=== PATIENT | female | born 1940 | race Caucasian/White ===

== ENCOUNTER 2020-06-09 10:29 | Outpatient (CLI) | payer MEDICARE, SELFPAY ==
--- NOTE | ~2020-06-09 | XR_ITS ---
EXAMINATION: XR chest 2V 06/09/2020 10:46 INDICATION: Persistent cough PROCEDURE: 2 view chest COMPARISON: 11/28/2014 FINDINGS: The lungs are clear. The lungs are hyperinflated which is consistent with, but not diagnost ic of chronic obstructive pulmonary disease. The cardiomediastinal silhouette is within normal limits . There are no pleural effusions. There is no pneumothorax suspected. IMPRESSION: 1: NO ACUTE CARDIOPULMONARY DISEASE. Reviewed, dictated and finalized at location A.
== END 2020-06-09 10:30 | disposition home or self-care (01) ==
PROVIDERS: PCP Family Medicine; Visit Provider Physician Assistant Medical
DX: R05 Cough (principal)
CPT/HCPCS: 71046

== ENCOUNTER 2020-07-16 08:52 | Outpatient (CLI) | payer MEDICARE, SELFPAY ==
--- NOTE | ~2020-07-16 | DEXA_ITS ---
Bone Density Report Name: Fide Adame Age: 80 Sex: Female Ethnicity: White Date of : 1940 Indication: postmenopausal; height loss; hysterectomy; Referring Provider: Liana Tracy Study: Bone densitometry was performed. Exam Date: July 16, 2020 Accession number: [id number] Bone Density: Region BMD T-score Z-score Classification AP Spine (L1, L2) 1.120 1.3 3.7 Normal Femoral Neck (Left) 0.656 -1.7 0.5 Osteopenia Total Hip (Left) 0.861 -0.7 1.3 Normal Total Hip Bilateral Avg 0.842 -0.8 1.2 Normal Femoral Neck (Right) 0.629 -2.0 0.2 Osteopenia Total Hip (Right) 0.822 -1.0 1.0 Normal World Health Organization criteria for BMD impression classify patients as: Normal (T-score at or above -1.0), Osteopenia (T-score between -1.0 and -2.5), or Osteoporosis (T-score at or below -2.5). 10-year Fracture Risk(1): Major Osteoporotic Fracture 14% Hip Fracture 4.0% Reported Risk Factors: [place] (), Neck BMD=0.629, BMI=24.1 (1) FRAX(R) Version 3.08. Fracture probability calculated for an untreated patient. Fracture probability may be lower if the patient has received treatment. Previous Exams: Region Exam Age BMD T-score BMD Change BMD Change Date g/cm2 vs Baseline vs Previous AP Spine(L1, L2) 07/16/2020 80 1.120 1.3 0.162(16.9%)* 0.162(16.9%)* 09/17/2014 74 0.958 -0.2 Total Hip(Left) 07/16/2020 80 0.861 -0.7 -0.022(-2.5%) -0.022(-2.5%) 09/17/2014 74 0.883 -0.5 Total Hip(Right) 07/16/2020 80 0.822 -1.0 -0.003(-0.4%) -0.003(-0.4%) 09/17/2014 74 0.825 -1.0 *Denotes significance at 95% confidence level, LSC for AP Spine = 0.022 g/cm2, LSC for Total Hip = 0.027 g/cm2 Clinical Information Provided by Patient: Has used the following medications: HRT (i.e. estrogen/hormone therapy), Vitamin D Has the following medical conditions: Hysterectomy, COPD Patient maximum height was 66 Menopause Age: 53 No regular weight bearing exercise Does not regularly consume dairy products Drinks caffeinated beverages Onset of menses at age 15 Number of children 1 Impression: The patient has low bone mass, based on the Right Femoral Neck T-score. The patient has an estimated ten-year risk of hip fracture of 4% and an estimated ten-year risk of major fracture of 14%, based on the WHO FRAX algorithm. No significant bone loss was observed. Discussion: BONE DENSITY IS LOW AT ONE OR MORE SKELETAL SITES. THE PATIENT'S BMD
== END 2020-07-16 08:53 | disposition home or self-care (01) ==
PROVIDERS: PCP Family Medicine; Visit Provider Physician Assistant Medical
DX: Z78.0 Asymptomatic menopausal state (principal)
CPT/HCPCS: 77080

== ENCOUNTER 2020-09-07 02:05 | Outpatient (CLI) | payer MEDICARE, SELFPAY ==
[2020-09-07 18:52] LABS: SARS-CoV-2 RNA PCR Negative
== END 2020-09-07 02:06 | disposition home or self-care (01) ==
LOC: ANHCOVIDDT 02:07
PROVIDERS: PCP Family Medicine; Visit Provider Internal Medicine Critical Care Medicine
DX: Z01.818 Encounter for other preprocedural examination (principal); Z20.828 Contact with and (suspected) exposure to other viral communicable diseases
CPT/HCPCS: 87635; C9803; U0003

== ENCOUNTER 2020-09-09 08:32 | Outpatient (CLI) | payer MEDICARE, SELFPAY ==
--- NOTE | 2020-10-23 14:06 | WPDSLEEPSTUD ---
Sleep Study Date of Study: 09/09/20 Ordering Provider: Kaylah Walker MD Interpreting Physician: Ana Hall MD Sleep Study Type: Polysomnogram Height: 1.65 m Weight: 65.771 kg Body Mass Index: 24.1 Neck Circumference: 30.48 cm [place]: 2 Reason for Sleep Study difficulty staying asleep Sleep History Fide Adame is a 81 year old female with difficulty staying asleep. She usually does not have problems falling asleep. She wakes up several times during the night, initially after the first 2 to 4 hours of sleep. She wakes up and feels that it is time for her to get up. She may stay in bed, watch TV and then usually she falls back to sleep. After another 1 or 2 hours she wakes again. She sleeps in blocks of 10-4 hours. She does not know how long this has been going on in total, but she knows that it has been longer than 2 years. she does not know if she snores or not. Nobody has complained about it. She does not awaken at night with heartburn, belching or coughing. She does not awaken from sleep feeling short of breath. She does not have trouble sleep with a cold and does not gasp for breath at night. She does not have breathing problems at night observed by others. She rarely sweats excessively at night. She does not notice her heart pounding or beating irregularly at night. She rarely falls asleep during the day, never involuntarily and never while driving. She does not fall asleep while exerting physical effort. She does not have loss of muscle tone with strong emotion. She does not have daytime difficulties due to excessive sleepiness, she is retired. she does not feel paralyzed on waking or falling asleep. She does not have vivid dreamlike scenes upon awakening or falling asleep. She is never a freight to go to sleep. She denies having nightmares. She rarely remembers her dreams. She frequently has racing thoughts. She does not have feelings of sadness or depression. She occasionally has anxiety. She occasionally has muscular tension. She does not notice parts of her body jerking. She does not kick at night. She does not have crawling and aching feelings in her legs and does not have any leg pain during the night. She does not wake up with morning jaw pain. She does not grind her teeth during sleep. She rarely is bothered by pain during the day. She never is awakened by pain at night. She occasionally wakes up feeling stiff in the morning with sore achy muscles. She rarely wakes up with pain in the neck and spine. She has memory problems. She has been prescribed Trazodone for sleep however this does not help her sleep through the night. Her normal bedtime is 11:00 p.m. falling asleep within a 1/2 hour, waking up 1 or 2 times throughout the night. While awake, she will watch television, use the bathroom and try to return to sleep. She may stay awake for 1-2 hours. She wakes in the morning at 7:30 a.m. She stays in the bed 2 hours after waking. She does not usually take a nap. Habits: Smoked 16 years ago. Caffeine 2 cups of coffee in the morning. Alcohol 1 or 2, not daily. [facility], [facility] Past Medical History Medical History (Updated 10/23/20 @ 19:36 by Ana Hall MD) COPD (chronic obstructive pulmonary disease) Essential (primary) hypertension Graves disease History of tobacco abuse Hyperlipidemia, unspecified Other iron deficiency anemias Thyroid disease Tinnitus Surgical History Surgical History (Updated 10/23/20 @ 18:57 by Ana Hall MD) H/O eye surgery H/O foot surgery History of cholecystectomy History of hysterectomy Family History Family History Sibling Family history of premature coronary heart disease Mother Hypertension Family history of congestive heart failure Father Family history of dementia Family history of Alzheimer's disease Other Cerebrovascular accident Family history of cardiovascular disease Family
[2020-10-23 18:48] VITALS: BMI 24.1
== END 2020-09-09 08:33 | disposition home or self-care (01) ==
LOC: ANHCSM 08:33
PROVIDERS: PCP Family Medicine; Visit Provider Internal Medicine Critical Care Medicine
DX: Z72.820 Sleep deprivation (principal); I45.10 Unspecified right bundle-branch block
CPT/HCPCS: 95810

== ENCOUNTER 2020-09-16 09:13 | Outpatient (CLI) | payer MEDICARE, SELFPAY ==
--- NOTE | 2020-10-28 14:18 | P.PCNPFT_ITS ---
PFT Interpretation PFT Interpretation: DOS: 09/16/2020 REQUESTING: Kaylah Walker MD REASON FOR TESTING: hyperinflation of the lungs PULMONARY FUNCTION TESTS Results are reliable. Spirometry: FEV1 is 111%, 2.11 L. This is normal. FVC 98%, also normal. FEV1/FVC is 78%, normal. There is no significant change after bronchodilator administration. Lung volumes: Total lung capacity is 97% normal. Residual volume 99%. RV/TLC 43%, mildly above predicted consistent with mild air trapping. Airway resistance 68%, not elevated. Diffusion: DLCO 72%. Flow volume loop: The inspiratory is not reproducible. The expiratory limb is normal. IMPRESSION: Normal spirometry, mild air trapping, and mild diffusion impai rment. The mild air trapping suggests an obstructive process. There is no change with bronchodilator administration. Clinical correlation is recommended. Ana Hall MD
== END 2020-09-16 09:14 | disposition home or self-care (01) ==
PROVIDERS: PCP Family Medicine; Visit Provider Internal Medicine Critical Care Medicine
DX: R09.89 Other specified symptoms and signs involving the circulatory and respiratory systems (principal)
CPT/HCPCS: 94060; 94726; 94729

== ENCOUNTER 2023-05-09 10:39 | Outpatient (CLI) | payer MEDICARE, SELFPAY ==
--- NOTE | ~2023-05-09 | XR_ITS ---
AP and lateral views of the left hip Clinical history: Pain Findings: No acute fracture or dislocation is seen. Osseous alignment is anatomic. Left hip joint and left SI joint are preserved. Soft tissues are unremarkable. Impression: No significant abnormality is seen. Reviewed, dictated and finalized at [facility]. Impression: No significant abnormality is seen.
== END 2023-05-09 10:40 | disposition home or self-care (01) ==
PROVIDERS: PCP Family Medicine; Visit Provider Family Medicine
DX: M70.62 Trochanteric bursitis, left hip (principal)
CPT/HCPCS: 73502

== ENCOUNTER 2023-05-30 11:06 | Outpatient (CLI) | payer MEDICARE, SELFPAY ==
--- NOTE | ~2023-05-30 | XR_ITS ---
XR lumbar spine 6V w bending DATE: 05/30/2023 11:46 INDICATION: Low back pain TECHNIQUE: AP, lateral, bilateral oblique, coned lateral lumbosacral views. Weightbearing flexion and extension lateral views COMPARISON: None FINDINGS: There is osteopenia. There is mild lumbar dextroscoliosis. There is 4 mm anterolisthesis and L3-4, 7 mm anterolisthesis at L4-5 and 3.5 mm retrolisthesis at L5- S1 in flexion. The anterolisthesis is 2.5 mm at L3-4 and 5.5 mm at L4-5 in extension. The mild retrolisthesis at L5- S1 is stable in flexion and extension. There is moderately prominent degenerative disc disease at L1-2 and L3-4. There is mild degenerative disc disease at L2-3. There is severe degenerative disc disease at L4-5 and L5-S1. No fracture or bone destruction is detected. No spondylolysis. The sacroiliac joints are intact. Status post cholecystectomy. IMPRESSION: Lumbar spondylosis Reviewed, dictated and finalized at location L. IMPRESSION: Lumbar spondylosis
== END 2023-05-30 11:07 | disposition home or self-care (01) ==
LOC: ANHIMG 11:16
PROVIDERS: PCP Family Medicine; Visit Provider Family Medicine
DX: M47.816 Spondylosis without myelopathy or radiculopathy, lumbar region (principal)
CPT/HCPCS: 72114

== ENCOUNTER 2023-07-13 14:45 | Outpatient (RCR) | payer MEDICARE, SELFPAY ==
--- NOTE | 2023-06-23 13:35 | OPREHPOC ---
Outpatient Therapy Plan of Care This is a Multidisciplinary Plan of Care that may contain components documented by all disciplines (PT, OT, and ST.) PT Problem 1 PT Problem #1 Knowledge Deficit PT Goal 1 Goal 1* indep with HEP 2* demonstrate good back position with exercises and activities PT Problem 2 PT Problem #2 Pain PT Goal 1 Goal 1* pt report pain at worst rating of 4/10 2* self assessment Oswestry rating of 10% limitation PT Problem 3 PT Problem #3 Impaired Strength PT Goal 1 Goal 1* pt perform 20 reps of mat and standing exercises with good stability of trunk and hips 2* single leg standing R 20 seconds 3* single leg standing L 20 seconds PT Problem 4 PT Problem #4 Impaired Functional Mobil PT Goal 1 Goal 1* pt demonstrate correct lifting with both hands floor/waist height bilateral UE 20# box
--- NOTE | 2023-06-23 13:36 | PTOPEVAL1 ---
Assessment and note entered by Rupa Shay, PT Evaluation Information Assessment Status Evaluation Diagnosis back pain, R and L leg pain Onset about 1 year ago Subjective Information about 1 year ago pain started, got worse over past winter; started doing more exercise at [facility]--chair exercises, chair yoga, line dancing- -not done since January due to pain; had steroid injection L hip--helped some; Oswestry self assessment rating of 14% limitation; indep with all home and self care tasks, does yard work, pull weeds--did 7 hours of yard work yesterday Activity: not doing fitness exercises; not walking as much; xray report: lumbar: anterolisthesis L 3-4 and L 4-5; moderate DDD L 1-2, L 2-3, L3-4; severe DDD L 4-5 and L5- S1; Reported Pain Level Pain Score Self Report Additional Pain Score Comments pain range in the past 0-8/10; bilateral low back, into L hip and lateral thigh; feels like L hip is gong to pop out the side of my leg; increase pain: initial standing up and walking, after sitting takes 5-6 steps to ease pain; lie on L side decrease pain: change position, take tylenol PRN not using heat/ice- instruct on PRN use; with sleeping, wake up when changing positions- not consistent, sometimes have pain with waking up in AM; generally sleep on her sides R/L; is generally not a good sleeper; also have cervical and thoracic pain--sometimes sleeps in cervical collar to help neck pain Assessment PT Clinical Summary Fide has the diagnosis of back pain, R and L leg pain. Her history includes back pain and L hip bursitis. She is active and does fitness exercises at the [employer]. Xray report states bony changes, moderate to severe lumbar DDD and anterolisthesis. She is indep with all home and self care tasks. Self assessment Oswestry score of 14% limitation. Due to pain she has decreased sleeping and activity tolerance. With the evaluation, she has good flexibility of trunk and hips, with decreased strength of trunk and L hip. With palpation
--- NOTE | 2023-07-13 15:18 | PTOPDC ---
Assessment and note entered by Rupa Shay, PT Evaluation Information Assessment Status Discharge Diagnosis back pain, R and L leg pain Onset about 1 year ago Subjective Information back is better, know how to help the pain be less; has still been doing all her yard work, house work, returned to chair yoga class now; Reported Pain Level Pain Score Self Report Additional Pain Score Comments pain range in the past week of 0-5/10; R > L lower lumbar-sacral; decrease pain with heat and stretching from HEP and chair yoga; tylenol PRN for pain; increase pain: walking, more activity, end of day; more aware and try not to sit over 1 hour; Assessment PT Clinical Summary Fide has received 6 PT sessions. Compared to the initial evaluation: pain rating same at low of 0/10 and worst from 8 to 5/10; self assessment Oswestry score same at 14% limitation in activity level; increase hip and trunk strength, with single leg standing tolerance of 30+ seconds; correct body mechanics with lifting a 20# box from floor/waist height; education completed for home exercises and pain management techniques. The goals were achieved. Discharge PT Services. She is to continue with HEP and balance of activity/rest/position change. Plan of Care PT Services Indicated No
== END 2023-07-13 16:07 | disposition home or self-care (01) ==
LOC: ANHPT 14:45
PROVIDERS: PCP Family Medicine; Visit Provider Family Medicine
DX: M54.50 Low back pain, unspecified (principal); M79.604 Pain in right leg; M79.605 Pain in left leg
CPT/HCPCS: 97014; 97110; 97140; 97161; 97530; G0283

== ENCOUNTER 2024-01-11 10:41 | Outpatient (CLI) | payer MEDICARE, SELFPAY ==
--- NOTE | ~2024-01-11 | MM_ITS ---
EXAMINATION: MM screening tristan BI w yessenia HISTORY: Screening mammogram TECHNIQUE: Craniocaudal and mediolateral oblique 3-D tomosynthesis images were obtained and synthetic 2-D images were generated. CAD analysis was submitted and interpreted. COMPARISON: No prior mammogram is available for comparison at this institution. BREAST PARENCHYMAL COMPOSITION: The breasts are heterogeneously dense, which may obscure small masses . FINDINGS: Biopsy marker on the right; history of prior benign right breast biopsies. There are microcalcifications bilaterally. Magnification views are recommended for more definitive ev aluation. No suspicious mass or architectural distortion, skin thickening or retraction is evident. IMPRESSION: 1. Bilateral microcalcifications 2. Diagnostic bilateral mammogram with magnification views is recommended. Comparison with any prior available mammogram would be helpful. BI-RADS Category 0: Incomplete: Needs additional imaging evaluation. Reviewed, dictated and finalized at location A. IMPRESSION: 1. Bilateral microcalcifications 2. Diagnostic bilateral mammogram with magnification views is recommended. Comp arison with any prior available mammogram would be helpful. BI-RADS Category 0: Incomplete: Needs additional imaging evaluation.
== END 2024-01-11 10:42 ==
LOC: MICIMG 10:43
PROVIDERS: PCP Family Medicine; Visit Provider Family Medicine
DX: Z12.31 Encounter for screening mammogram for malignant neoplasm of breast (principal); R92.8 Other abnormal and inconclusive findings on diagnostic imaging of breast
CPT/HCPCS: 77063; 77067

== ENCOUNTER 2024-02-09 12:34 | Outpatient (CLI) | payer MEDICARE, SELFPAY ==
--- NOTE | ~2024-02-09 | XR_ITS ---
AP and lateral views of the left hip Clinical history: Pain comment bursitis Findings: No acute fracture or dislocation is seen. Osseous alignment is anatomic. Bilateral hip and SI joint spaces are preserved. Soft tissues are unremarkable. Impression: No significant abnormality is seen. Reviewed, dictated and finalized at [facility]. Impression: No significant abnormality is seen.
== END 2024-02-09 12:35 ==
PROVIDERS: PCP Physician Assistant; Visit Provider Physician Assistant
DX: M70.72 Other bursitis of hip, left hip (principal)
CPT/HCPCS: 73502

== ENCOUNTER 2024-04-09 09:03 | Day surgery (SDC) | payer MEDICARE, SELFPAY ==
[2024-02-01 13:41] VITALS: BMI 24.9
[2024-03-25 11:45] VITALS: BMI 23.5
--- NOTE | 2024-03-27 12:17 | PC.NURSE ---
Spoke with pt regarding anticoagulation clearance for colonoscopy scheduled 04/09/2024. Informed pt branch officer OK'd pt to hold Eliquis 2 days prior to colonoscopy, last dose 04/06/2024, and Dr Conley will inform pt when it can be restarted post procedure. Pt verbalized understanding.
[2024-04-09 10:40] VITALS: BP 111/78; PULSE 86; RESP 20; TEMP 36.3; O2SAT 100; BMI 22.4
[2024-04-09] MEDS: LACTATED RINGERS 1,000 ML 150 ML IV CONT (10:54)
--- NOTE | 2024-04-09 10:56 | WPDANESEPPF ---
Anes - Initial Pre Proc Eval Procedure: Operation Date: 04/09/24 11:30 Proposed Procedures p Screening Colonoscopy - Peter Conley MD Date/Time: 04/09/24 10:56 Surgeon: Peetr Conley MD Pre Op Diagnosis: Neoplasm Screening Patient Data Age: 84 Gender: F Height: 1.68 m Weight: 62.9 kg Last Vital Signs Temp 36.3 C L 04/09/24 10:40 Pulse 86 04/09/24 10:40 Resp 20 04/09/24 10:40 BP 111/78 04/09/24 10:40 Pulse Ox 100 04/09/24 10:40 O2 Del Method Room Air 04/09/24 10:40 Allergies Allergy/AdvReac Type Severity Reaction Status Date / Time No Known Allergies Allergy Mild Verified 04/09/24 10:33 Home Medications Medication Instructions Recorded Confirmed Type propranolol 80 mg capsule,24 80 mg PO DAILY 10/03/23 04/09/24 History hr,extended release apixaban 2.5 mg tablet (Eliquis) 2.5 mg PO BID 01/30/24 04/09/24 History levothyroxine 88 mcg tablet 88 mcg PO DAILY #90 tabs 03/20/24 04/09/24 Rx amlodipine 2.5 mg tablet 2.5 mg PO DAILY 03/25/24 04/09/24 History cholecalciferol (vitamin D3) 25 25 mcg PO DAILY 03/25/24 04/09/24 History mcg (1,000 unit) tablet (Vitamin D3) cholestyramine (with sugar) 4 gram 4 ea PO HS PRN other 03/25/24 04/09/24 History powder for susp in a packet estradiol 0.5 mg tablet 0.5 mg PO DAILY 03/25/24 04/09/24 History magnesium 500 mg tablet 500 mg PO DAILY 03/25/24 04/09/24 History turmeric 400 mg capsule 400 mg PO DAILY 03/25/24 03/25/24 History valacyclovir 500 mg tablet 500 mg PO DAILY PRN other 03/25/24 04/09/24 History vitamin B complex 1 tablet PO DAILY 03/25/24 04/09/24 History Patient hx anesthesia problems: none Family hx anesthesia problems: none Results Review: All pre-operative results and documents have been reviewed as part of the pre-operative evaluation. PMFSH Past Medical History Medical History Agnosia for taste Basal cell carcinoma (BCC) BMI 25.0-25.9,adult BMI 26.0-26.9,adult Breast tenderness in female Cervical radicular pain COPD (chronic obstructive pulmonary disease) Essential (primary) hypertension Exocrine pancreatic insufficiency Graves disease Head pain Hip bursitis, left History of tobacco abuse Hyperinflation of lungs Hyperlipidemia, unspecified Hypersomnia Left hip pain Left knee pain Leg pain, bilateral Low back pain Macrocytosis without anemia Other iron deficiency anemias Poor sleep Poor sleep hygiene Post-menopause on HRT (hormone replacement therapy) Right bundle branch block (~09/2020) Sciatica associated with disorder of lumbar spine Sensation of feeling cold Skin texture changes Snoring Suspected sleep apnea SVT (supraventricular tachycardia) Thyroid disease Tinnitus Urinary incontinence Surgical History Surgical History H/O eye surgery H/O foot surgery History of cholecystectomy History of hysterectomy S/P Mohs surgery for basal cell carcinoma eyebrow Family History Family History Sibling Family history of premature coronary heart disease Mother Hypertension Family history of congestive heart failure Rheumatoid arthritis Father Family history of dementia Family history of Alzheimer's disease Sibling Heart disease Sibling Acute myocardial infarction Other Cerebrovascular accident Family history of cardiovascular disease Family history of coronary artery disease Family history of malignant neoplasm Family history of rheumatoid arthritis Social History Social History Social History: Retired, lives alone, quit smoking 2001 Smoking packs per day: 1 Smoking cigarettes per day: 20.0 Years smoked: 44 Smoking pack-years: 44.00 Smoking status: Former smoker Tobacco type: cigarettes Second [place]
--- NOTE | 2024-04-09 11:02 | PM.HPGS ---
History of Present Illness History of Present Illness Consent: Risks, benefits, and alternatives have been discussed and questions answered. Patient agrees to proceed with procedure. Chief complaint: Neoplasm Screening Narrative: Fide Adame is a 84 year old female referred for colon cancer screening. Review of Systems Review of Systems: All systems reviewed & are unremarkable except as noted in HPI and below PMFSH Past Medical History Medical History Agnosia for taste Basal cell carcinoma (BCC) BMI 25.0-25.9,adult BMI 26.0-26.9,adult Breast tenderness in female Cervical radicular pain COPD (chronic obstructive pulmonary disease) Essential (primary) hypertension Exocrine pancreatic insufficiency Graves disease Head pain Hip bursitis, left History of tobacco abuse Hyperinflation of lungs Hyperlipidemia, unspecified Hypersomnia Left hip pain Left knee pain Leg pain, bilateral Low back pain Macrocytosis without anemia Other iron deficiency anemias Poor sleep Poor sleep hygiene Post-menopause on HRT (hormone replacement therapy) Right bundle branch block (~09/2020) Sciatica associated with disorder of lumbar spine Sensation of feeling cold Skin texture changes Snoring Suspected sleep apnea SVT (supraventricular tachycardia) Thyroid disease Tinnitus Urinary incontinence Surgical History Surgical History H/O eye surgery H/O foot surgery History of cholecystectomy History of hysterectomy S/P Mohs surgery for basal cell carcinoma eyebrow Family History Family History Sibling Family history of premature coronary heart disease Mother Hypertension Family history of congestive heart failure Rheumatoid arthritis Father Family history of dementia Family history of Alzheimer's disease Sibling Heart disease Sibling Acute myocardial infarction Other Cerebrovascular accident Family history of cardiovascular disease Family history of coronary artery disease Family history of malignant neoplasm Family history of rheumatoid arthritis Social History Social History Social History: Retired, lives alone, quit smoking 2001 Smoking packs per day: 1 Smoking cigarettes per day: 20.0 Years smoked: 44 Smoking pack-years: 44.00 Smoking status: Former smoker Tobacco type: cigarettes Second hand tobacco smoke exposure: No Alcohol intake: current Alcohol use details: occasional Substance use: never Substance use type: does not use Do You Feel Safe in your Home?: Yes Lack of Transportation: No Lack of Food: Never True Current Housing: I Have Housing Concerned About Future Housing: No Difficulty Paying Gas/Electric Bills: No Difficulty Paying for Meds: No Currently Unemployed: No Education: High School Diploma/GED Difficulty w/ Childcare or Family Care: No Living arrangements: alone Occupation/Education: retired Additional occupation/education comments: [employer] Gender identity (if verbalized by the patient): Female Spiritual care concerns: No Meds Home Medications and Allergies Home Medications Medication Instructions Recorded Confirmed Type propranolol 80 mg capsule,24 80 mg PO DAILY 10/03/23 04/09/24 History hr,extended release apixaban 2.5 mg tablet (Eliquis) 2.5 mg PO BID 01/30/24 04/09/24 History levothyroxine 88 mcg tablet 88 mcg PO DAILY #90 tabs 03/20/24 04/09/24 Rx amlodipine 2.5 mg tablet 2.5 mg PO DAILY 03/25/24 04/09/24 History cholecalciferol (vitamin D3) 25 25 mcg PO DAILY 03/25/24 04/09/24 History mcg (1,000 unit) tablet (Vitamin D3) cholestyramine (with sugar) 4 gram 4 ea PO HS PRN other 03/25/24 04/09/24 History powder for susp in a packet
[2024-04-09 11:42] VITALS: BP 113/69; PULSE 72; RESP 14; O2SAT 100
[2024-04-09 11:52] VITALS: BP 119/91; PULSE 79; RESP 20; O2SAT 100
[2024-04-09 12:02] VITALS: BP 115/62; PULSE 72; RESP 20; O2SAT 100
--- NOTE | 2024-04-09 12:15 | WPDANESPN ---
Anes - Prog Note Post-Op Date/Time: 04/09/24 12:15 Cardiovascular status: normal Respiratory status: normal Airway patency: baseline Mental status: baseline Vital Signs: Last Vital Signs Temp 36.3 C L 04/09/24 10:40 Pulse 72 04/09/24 12:02 Resp 20 04/09/24 12:02 BP 115/62 04/09/24 12:02 Pulse Ox 100 04/09/24 12:02 O2 Del Method Room Air 04/09/24 12:02 Pain Score (VAS): 0/10 I/O: Intake & Output 04/08/24 04/09/24 04/09/24 23:59 07:59 15:59 Intake Total 200 Balance 200 Patient Feedback: Patient satisfied with anesthetic care.
== END 2024-04-09 12:09 | disposition home or self-care (01) ==
PROVIDERS: PCP Family Medicine; Visit Provider Internal Medicine Gastroenterology
PROC: 0DJD8ZZ Inspection of Lower Intestinal Tract, Via Natural or Artificial Opening Endoscopic (ICD-10-PCS; CPT 45378; principal; 2024-04-09 11:30)
DX: Z12.11 Encounter for screening for malignant neoplasm of colon (principal); K57.30 Diverticulosis of large intestine without perforation or abscess without bleeding
CPT/HCPCS: G0121

== ENCOUNTER 2025-03-13 14:53 | Outpatient (CLI) | payer MEDICARE, SELFPAY ==
--- NOTE | ~2025-03-13 | MM_ITS ---
EXAMINATION: MM screening tristan BI w yessenia HISTORY: Screening TECHNIQUE: Craniocaudal and mediolateral oblique 3-D tomosynthesis images were obtained and synthetic 2-D images were generated. CAD analysis was submitted and interpreted. COMPARISON: Comparison to multiple prior studies sequentially, with oldest reviewed study dated 05/03. BREAST PARENCHYMAL COMPOSITION: Dense: The breasts are heterogeneously dense, which may obscure small masses FINDINGS: There are scattered punctate monomorphic breast calcifications which are not significantly changed. There is no evidence of suspicious mass, calcification, or architectural distortion to sugge st malignancy in either breast. There has been no suspicious interval change. IMPRESSION: 1. No mammographic evidence of malignancy. 2. Recommend routine screening mammography in one year. BI-RADS Category 2: Benign finding(s). Reviewed, dictated and finalized at location B.
== END 2025-03-13 14:54 | disposition home or self-care (01) ==
LOC: MICIMG 14:54
PROVIDERS: PCP Nurse Practitioner Family; Visit Provider Nurse Practitioner Family
DX: Z12.31 Encounter for screening mammogram for malignant neoplasm of breast (principal)
CPT/HCPCS: 77063; 77067

== ENCOUNTER 2025-07-05 09:52 | Outpatient (CLI) | payer MEDICARE, SELFPAY ==
--- NOTE | ~2025-07-05 | XR_ITS ---
EXAMINATION: XR hip BI 2V w AP pelvis, 07/05/2025 10:00 CDT HISTORY: M70.62 - Trochanteric bursitis, left hip, PAIN X 2YRS COMPARISON: No comparisons available. Findings: No acute fracture or malalignment. Moderate degenerative changes Soft tissues unremarkable. Impression: No acute fracture or malalignment. Reviewed, dictated and finalized at location P. Impression: No acute fracture or malalignment.
== END 2025-07-05 09:53 | disposition home or self-care (01) ==
PROVIDERS: PCP Family Medicine; Visit Provider Physician Assistant Surgical
DX: M70.62 Trochanteric bursitis, left hip (principal); M16.12 Unilateral primary osteoarthritis, left hip; M25.551 Pain in right hip
CPT/HCPCS: 73521